=== PATIENT | male | born 1985 | race Caucasian/White ===

== ENCOUNTER 2017-05-27 05:30 | Emergency (ER) | payer MEDICAID ==
[~2017-05-27] VITALS: Ht 167.6 cm; Wt 80.0 kg
[~2017-05-27 05:30] MED LIST: AMOX1TAB64 PO; HYDR-882 PO; ONDA4TAB7 PO; OXYC-302 PO
[2017-05-27 06:28] VITALS: BP 102/54
== END 2017-05-27 08:37 | disposition home or self-care (01) ==
LOC: MERGE 05:30 → EDBD 05:30 → ED 08:10
DX: F10.120 Alcohol abuse with intoxication, uncomplicated (principal)
CPT/HCPCS: 36415; 80307; 99283

== ENCOUNTER 2017-07-06 03:59 | Emergency (ER) | payer MEDICAID ==
[~2017-07-06] VITALS: Ht 170.2 cm; Wt 60.6 kg
[2017-07-06 04:01] VITALS: BP 125/79
[2017-07-06] MEDS ORDERED: IBUPROFEN 200 MG TABLET ONE (04:46)
[2017-07-06] MEDS ORDERED: IBUPROFEN 200 MG TABLET PO ONE (05:00)
== END 2017-07-06 06:06 | disposition home or self-care (01) ==
LOC: ED 05:45
DX: S90.32XA Contusion of left foot, initial encounter (principal); Z59.0 Homelessness; F17.200 Nicotine dependence, unspecified, uncomplicated; X50.1XXA Overexertion from prolonged static or awkward postures, initial encounter; Y93.89 Activity, other specified; Y99.8 Other external cause status; Y92.89 Other specified places as the place of occurrence of the external cause
CPT/HCPCS: 99284

== ENCOUNTER 2018-07-13 17:12 | Emergency (ER) | payer MEDICAID ==
[~2018-07-13] VITALS: Ht 167.6 cm; Wt 58.3 kg
[~2018-07-13 17:12] MED LIST changes: +HYDR-3653 PO; -HYDR-882 PO
[2018-07-13] MEDS ORDERED: CHLORDIAZEPOXIDE 25 MG CAPSULE PO ONE (19:00)
[2018-07-13] MEDS ORDERED: CHLORDIAZEPOXIDE 25 MG CAPSULE ONE (19:08)
[2018-07-13 19:14] VITALS: BP 117/71
== END 2018-07-13 21:40 | disposition home or self-care (01) ==
LOC: ED 19:25
DX: F15.10 Other stimulant abuse, uncomplicated (principal)
CPT/HCPCS: 82962; 99283

== ENCOUNTER 2018-07-28 02:11 | Emergency (ER) | payer MEDICAID ==
[~2018-07-28] VITALS: Ht 170.2 cm; Wt 60.6 kg
[2018-07-28 02:13] VITALS: BP 143/87
== END 2018-07-28 03:33 | disposition home or self-care (01) ==
LOC: ED 02:34
DX: S62.326A Displaced fracture of shaft of fifth metacarpal bone, right hand, initial encounter for closed fracture (principal); W22.01XA Walked into wall, initial encounter; Y93.89 Activity, other specified; Y99.8 Other external cause status; Y92.89 Other specified places as the place of occurrence of the external cause
CPT/HCPCS: 29125; 99284

== ENCOUNTER 2018-07-28 09:00 | Emergency (ER) | payer MEDICAID ==
[~2018-07-28] VITALS: Ht 167.6 cm; Wt 60.0 kg
[2018-07-28 09:04] VITALS: BP 121/79
== END 2018-07-28 10:45 | disposition home or self-care (01) ==
LOC: ED 09:21
DX: S62.324A Displaced fracture of shaft of fourth metacarpal bone, right hand, initial encounter for closed fracture (principal); S62.306A Unspecified fracture of fifth metacarpal bone, right hand, initial encounter for closed fracture; F10.10 Alcohol abuse, uncomplicated; Z72.9 Problem related to lifestyle, unspecified; X58.XXXA Exposure to other specified factors, initial encounter; Y93.89 Activity, other specified; Y99.8 Other external cause status; Y92.89 Other specified places as the place of occurrence of the external cause
CPT/HCPCS: 29125; 99284

== ENCOUNTER 2018-07-28 16:02 | Emergency (ER) | payer MEDICAID ==
[~2018-07-28] VITALS: Ht 172.7 cm; Wt 60.3 kg
[2018-07-28 16:06] VITALS: BP 133/83
== END 2018-07-28 16:45 | disposition home or self-care (01) ==
LOC: ED 16:43
DX: S62.354A Nondisplaced fracture of shaft of fourth metacarpal bone, right hand, initial encounter for closed fracture (principal); S62.306A Unspecified fracture of fifth metacarpal bone, right hand, initial encounter for closed fracture; Z90.49 Acquired absence of other specified parts of digestive tract; W19.XXXA Unspecified fall, initial encounter; Y93.89 Activity, other specified; Y99.8 Other external cause status; Y92.009 Unspecified place in unspecified non-institutional (private) residence as the place of occurrence of the external cause
CPT/HCPCS: 99281; 99282

== ENCOUNTER 2018-09-10 20:02 | Emergency (ER) | payer MEDICAID ==
[~2018-09-10] VITALS: Ht 167.6 cm; Wt 57.7 kg
[2018-09-10 20:03] VITALS: BP 150/92
== END 2018-09-10 22:45 | disposition home or self-care (01) ==
LOC: ED 22:36
DX: S62.364A Nondisplaced fracture of neck of fourth metacarpal bone, right hand, initial encounter for closed fracture (principal); S62.366A Nondisplaced fracture of neck of fifth metacarpal bone, right hand, initial encounter for closed fracture; Z90.49 Acquired absence of other specified parts of digestive tract; Z72.9 Problem related to lifestyle, unspecified; X58.XXXA Exposure to other specified factors, initial encounter; Y93.89 Activity, other specified; Y92.098 Other place in other non-institutional residence as the place of occurrence of the external cause; Y99.8 Other external cause status
CPT/HCPCS: 29125; 36415; 86592; 87491; 87591; 87806; 99284; G0475

== ENCOUNTER 2018-09-21 15:36 | Emergency (ER) | payer MEDICAID ==
[~2018-09-21] VITALS: Ht 170.2 cm; Wt 56.0 kg
[2018-09-21 15:47] VITALS: BP 128/83
== END 2018-09-21 16:43 | disposition home or self-care (01) ==
LOC: ED 16:05
DX: M79.641 Pain in right hand (principal)
CPT/HCPCS: 29125

== ENCOUNTER 2018-09-24 23:02 | Emergency (ER) | payer MEDICAID ==
[~2018-09-24] VITALS: Ht 172.7 cm; Wt 56.0 kg
[2018-09-24 23:07] VITALS: BP 132/76
--- NOTE | 2018-09-24 23:10 | NUR ---
PT AMBULATED TO ROOM WITH A STEADY GAIT AND CHANGED INTO GOWN
[2018-09-24] MEDS ORDERED: ACETAMINOPHEN 500 MG TABLET ONE (23:56)
--- NOTE | 2018-09-24 23:59 | NUR ---
PT MEDICATED. VSS. PT GETTING DRESSED
[2018-09-25] MEDS ORDERED: ACETAMINOPHEN 500 MG TABLET PO ONE
--- NOTE | 2018-09-25 00:03 | NUR ---
PT EMPTIED BACKPACK. PT REFUSING TO GET DRESSED. SECURITY CALLED TO ASSIST WITH DISCHARGE.
--- NOTE | 2018-09-25 00:24 | NUR ---
PT ESCORTED OUT BY SECURITY
== END 2018-09-25 00:25 | disposition home or self-care (01) ==
LOC: ED 23:40
DX: G89.11 Acute pain due to trauma (principal); R10.2 Pelvic and perineal pain; Z90.49 Acquired absence of other specified parts of digestive tract; W01.0XXA Fall on same level from slipping, tripping and stumbling without subsequent striking against object, initial encounter; Y93.89 Activity, other specified; Y92.410 Unspecified street and highway as the place of occurrence of the external cause; Y99.8 Other external cause status
CPT/HCPCS: 99282

== ENCOUNTER 2018-10-09 00:14 | Emergency (ER) | payer MEDICAID ==
[~2018-10-09] VITALS: Ht 167.6 cm; Wt 54.0 kg
[2018-10-09 00:19] VITALS: BP 111/71
--- NOTE | 2018-10-09 01:40 | NUR ---
Patient/Caregiver given discharge instructions and they have confirmed that they understand the instructions. Patient ambulatory with steady gait.
== END 2018-10-09 01:41 | disposition home or self-care (01) ==
LOC: ED 00:54
DX: R07.89 Other chest pain (principal); F15.10 Other stimulant abuse, uncomplicated; R20.2 Paresthesia of skin; Z90.49 Acquired absence of other specified parts of digestive tract
CPT/HCPCS: 93005; 99283

== ENCOUNTER 2019-10-13 05:21 | Emergency (ER) | payer MEDICAID ==
[~2019-10-13] VITALS: Ht 170.2 cm; Wt 59.0 kg
[~2019-10-13 05:21] MED LIST changes: +QUET25TA5 PO; +RISP1TAB45 PO
--- NOTE | 2019-10-13 05:58 | NUR ---
URINE SAMPLE SENT
[2019-10-13] MEDS ORDERED: ONDANSETRON 2MG/ML, 2ML IVPush ONE (06:00)
[2019-10-13] MEDS ORDERED: SODIUM CHLORIDE FLUSH 10ML SYR IVF ONE (06:00)
[2019-10-13] MEDS ORDERED: KETOROLAC 30 MG/1 ML IVPush ONE (06:00)
[2019-10-13] MEDS ORDERED: KETOROLAC 30 MG/1 ML ONE (06:03)
[2019-10-13] MEDS ORDERED: ONDANSETRON 2MG/ML, 2ML ONE (06:03)
--- NOTE | 2019-10-13 06:09 | NUR ---
Medicated per MAR.
[2019-10-13 06:15] LABS: BASOPHILS # (AUTO) 0.11 x10^3/uL (0-0.1); BASOPHILS % (AUTO) 1 % (0-1); EOSINOPHILS # (AUTO) 0.24 x10^3/uL (0-0.4); EOSINOPHILS % (AUTO) 2 % (1-7); LYMPHOCYTES # (AUTO) 1.98 x10^3/uL (1-3.4); LYMPHOCYTES % (AUTO) 20 % (22-44); MD NO; MEAN CORPUSCULAR HEMOGLOBIN 31.5 pg (27.5-34.5); MEAN CORPUSCULAR HGB CONC 34.3 g/dL (33.2-36.2); MEAN CORPUSCULAR VOLUME 91.8 fL (81-97); MEAN PLATELET VOLUME 7.1 fL (7.4-10.4); MONOCYTES # (AUTO) 0.61 x10^3/uL (0.2-0.8); MONOCYTES % (AUTO) 6 % (2-9); NEUTROPHILS # (AUTO) 6.86 x10^3/uL (1.8-6.8); NEUTROPHILS % (AUTO) 70 % (42-75); PLATELET COUNT 368 x10^3/uL (130-400); RED BLOOD COUNT 5.13 x10^6/uL (4.38-5.82); RED CELL DISTRIBUTION WIDTH 13.5 % (9.4-14.8)
[2019-10-13 06:15] LABS: MICROSCOPIC NOT IND
[2019-10-13 06:20] LABS: CULTURE INDICATED? NO
[2019-10-13 06:23] LABS: ANION GAP 11 mmol/L (5-15); CALCIUM 8.7 mg/dL (8.5-10.1); CHLORIDE 108 mmol/L (98-107); CREATININE 0.91 mg/dL (0.7-1.3)
--- NOTE | 2019-10-13 06:56 | NUR ---
REPORT GIVEN TO KATHARINE TATE
--- NOTE | 2019-10-13 06:57 | NUR ---
Assumed c/o pt from KATHARINE Zavala. Pt OOB to restroom w/out assist.
[2019-10-13 07:27] VITALS: BP 117/69
--- NOTE | 2019-10-13 07:55 | NUR ---
Patient given discharge instructions and they have confirmed that they understand the instructions. Patient ambulatory with steady gait.
== END 2019-10-13 07:57 | disposition home or self-care (01) ==
LOC: ED 05:52
DX: R10.31 Right lower quadrant pain (principal); F17.210 Nicotine dependence, cigarettes, uncomplicated; Z90.49 Acquired absence of other specified parts of digestive tract
CPT/HCPCS: 36415; 80048; 81003; 82040; 85025; 96374; 96375; 99283; J1885; J2405

== ENCOUNTER 2019-10-21 15:46 | Emergency (ER) | payer MEDICAID ==
[~2019-10-21] VITALS: Ht 170.2 cm; Wt 61.0 kg
[2019-10-21] MEDS ORDERED: NALOXONE 0.4 MG/ML, 1ML ONE (16:42)
--- NOTE | 2019-10-21 16:48 | NUR ---
PIV ESTABLISHED. PT TOLERATED WITH NO COMPLICATIONS.
[2019-10-21] MEDS ORDERED: SODIUM CHLORIDE 0.9% 1,000ML IVBOLUS ONE ×2 (17:00→19:00)
[2019-10-21] MEDS ORDERED: NALOXONE 0.4 MG/ML, 1ML IVPush PRN (17:00)
--- NOTE | 2019-10-21 17:05 | NUR ---
LATE ENTRY FOR 1620 PT ARRIVED TO ED WITH C/O PAIN. PT UNABLE TO KEEP EYES OPEN AND HOLD CONVERSATION. PT UNABLE TO EXPRESS WHAT IS BOTHERING HIM. PT WAKENS TO VERBAL STIMULI BUT CANT KEEP EYES OPEN. PT FOLLOWS COMMANDS. PT PLACED ON CONT PULSE OX,NIBP, ONLINE BANKING SPECIALIST.
--- NOTE | 2019-10-21 17:07 | NUR ---
MEDICATION ADMINISTERED PER ORDER. NO CHANGE
[2019-10-21 17:15] LABS: BASOPHILS # (AUTO) 0.09 x10^3/uL (0-0.1); BASOPHILS % (AUTO) 1 % (0-1); EOSINOPHILS # (AUTO) 0.43 x10^3/uL (0-0.4); EOSINOPHILS % (AUTO) 6 % (1-7); LYMPHOCYTES # (AUTO) 2.06 x10^3/uL (1-3.4); LYMPHOCYTES % (AUTO) 27 % (22-44); MD NO; MEAN CORPUSCULAR HEMOGLOBIN 31.5 pg (27.5-34.5); MEAN CORPUSCULAR HGB CONC 34.3 g/dL (33.2-36.2); MEAN CORPUSCULAR VOLUME 91.8 fL (81-97); MEAN PLATELET VOLUME 7.4 fL (7.4-10.4); MONOCYTES # (AUTO) 0.37 x10^3/uL (0.2-0.8); MONOCYTES % (AUTO) 5 % (2-9); NEUTROPHILS % (AUTO) 62 % (42-75); PLATELET COUNT 295 x10^3/uL (130-400); RED BLOOD COUNT 4.99 x10^6/uL (4.38-5.82); RED CELL DISTRIBUTION WIDTH 14.1 % (9.4-14.8)
--- NOTE | 2019-10-21 17:17 | NUR ---
PT WAKING UP MORE. PT STATES HE TOOK SOME QUETIAPINE ABOUT 3 HOURS AGO D/T FEELING "ANXIOUS" PT DENIED SI/HI. PT WAS AMBULATORY WITH STEADY GAIT TO BATHROOM.
[2019-10-21 17:20] LABS: ALBUMIN 3.7 g/dL (3.4-5.0); ANION GAP 12 mmol/L (5-15); CALCIUM 8.9 mg/dL (8.5-10.1); CHLORIDE 109 mmol/L (98-107)
[2019-10-21 17:21] LABS: SALICYLATE LEVEL < 1.7 mg/dL (2.8-20.0)
[2019-10-21 17:22] LABS: ALANINE AMINOTRANSFERASE 27 U/L (12-78); ALKALINE PHOSPHATASE 74 U/L (45-117); BILIRUBIN,TOTAL 0.5 mg/dL (0.2-1.0); CREATININE 0.88 mg/dL (0.7-1.3)
[2019-10-21 17:58] LABS: AMPHETAMINE SCREEN, URINE Negative (Negative); BARBITURATE SCREEN, URINE Negative (Negative); BENZODIAZEPINE SCREEN, URINE Negative (Negative); CANNABINOID SCREEN, URINE Positive (Negative); COCAINE SCREEN, URINE Negative (Negative); METHADONE SCREEN, URINE Negative (Negative); OPIATE SCREEN, URINE Negative (Negative)
--- NOTE | 2019-10-21 18:03 | NUR ---
DIET TRAY DELIVERED.
--- NOTE | 2019-10-21 18:30 | NUR ---
PT RESTING ON GURNEY. NADN. RESPS EQUAL AND UNLABORED. PT RESPONDS TO VERBAL COMMAND. WILL CONTINUE TO MONITOR
--- NOTE | 2019-10-21 18:52 | NUR ---
BEDSIDE REPORT TO KATHARINE WEEKS.
--- NOTE | 2019-10-21 18:53 | NUR ---
RPT RECEIVED FROM KATHARINE MARQUEZ. ASSUMED CARE OF PT. PT RESTING COMFORTABLY. BLANKET PROVIDED. MONITOR IN PLACE.
[2019-10-21 21:01] VITALS: BP 102/51
== END 2019-10-21 21:06 | disposition home or self-care (01) ==
LOC: ED 17:25
DX: T43.591A Poisoning by other antipsychotics and neuroleptics, accidental (unintentional), initial encounter (principal); R41.82 Altered mental status, unspecified; F17.200 Nicotine dependence, unspecified, uncomplicated; Z90.49 Acquired absence of other specified parts of digestive tract; Y92.9 Unspecified place or not applicable
CPT/HCPCS: 36415; 80053; 80307; 85025; 93005; 96361; 96374; 99284; J2310; J7030

== ENCOUNTER 2019-10-31 06:07 | Emergency (ER) | payer MEDICAID ==
[~2019-10-31] VITALS: Ht 170.2 cm; Wt 61.0 kg
--- NOTE | 2019-10-31 06:24 | NUR ---
Pt presents to room with c/o left hand/wrist pain stating he woke up with the pain today. Pt cannot recall falling or injuring the hand at any point. Pt was seen here yesterday and registered under a different name. Pt admitted to cocaine and marijuana use yesterday. Pt admits to heroin use today. Pt has redness and swelling to his left hand here.
--- NOTE | 2019-10-31 06:53 | NUR ---
report received from melissa treviño.
[2019-10-31] MEDS ORDERED: DIPH,PERTUSS(ACELL),TET VAC/PF 0.5 ML IM-VACC ONE ×2 (07:00→07:10)
[2019-10-31] MEDS ORDERED: ACETAMINOPHEN 325 MG TABLET PO ONE (07:00)
[2019-10-31] MEDS ORDERED: ACETAMINOPHEN 325 MG TABLET ONE (07:10)
--- NOTE | 2019-10-31 07:24 | NUR ---
PT MEDICATED PER EMAR. PT TOLERATED WELL.
[2019-10-31 07:37] VITALS: BP 111/67
--- NOTE | 2019-10-31 08:02 | NUR ---
Patient given discharge instructions and they have confirmed that they understand the instructions.
== END 2019-10-31 08:03 | disposition home or self-care (01) ==
LOC: ED 06:38
DX: M25.532 Pain in left wrist (principal); Z90.89 Acquired absence of other organs; Z90.49 Acquired absence of other specified parts of digestive tract; F17.200 Nicotine dependence, unspecified, uncomplicated; W18.30XA Fall on same level, unspecified, initial encounter; Y93.89 Activity, other specified; Y92.009 Unspecified place in unspecified non-institutional (private) residence as the place of occurrence of the external cause; Y99.8 Other external cause status
CPT/HCPCS: 90471; 90715; 99283

== ENCOUNTER 2019-11-01 03:20 | Emergency (ER) | payer MEDICAID ==
[~2019-11-01] VITALS: Ht 167.6 cm; Wt 57.7 kg
[2019-11-01 03:23] VITALS: BP 155/68
--- NOTE | 2019-11-01 03:38 | NUR ---
pt became aggressive towards staff immediately upon entering room. Pt yelling that he hasn't done meth in a week and started screaming in PA's face. Pt unwilling to speak to staff in a calm manner, pt yelling that he needs muscle relaxers. Explained treatment plan to pt, pt states that it isn't "good enough." Pt gathered belongings and left screaming.
== END 2019-11-01 03:47 | disposition left against medical advice (07) ==
LOC: ED 03:41
DX: F15.20 Other stimulant dependence, uncomplicated (principal); F17.200 Nicotine dependence, unspecified, uncomplicated
CPT/HCPCS: 99281

== ENCOUNTER 2019-11-01 23:56 | Emergency (ER) | payer MEDICAID ==
[~2019-11-01] VITALS: Ht 167.6 cm; Wt 59.8 kg
[2019-11-02 00:01] VITALS: BP 146/90
== END 2019-11-02 00:33 | disposition home or self-care (01) ==
LOC: ED 11-02 00:20
DX: F15.10 Other stimulant abuse, uncomplicated (principal); F17.200 Nicotine dependence, unspecified, uncomplicated; Z90.49 Acquired absence of other specified parts of digestive tract
CPT/HCPCS: 99281

== ENCOUNTER 2019-11-13 08:46 | Emergency (ER) | payer MEDICAID ==
[~2019-11-13] VITALS: Ht 165.1 cm; Wt 69.4 kg
--- NOTE | 2019-11-13 08:55 | NUR ---
ABEL RN: PT CHECKED IN A DIFFERENT IDENITY, REGISTRATION IS ATTEMPTING TO MERGE ACCOUNTS
--- NOTE | 2019-11-13 09:01 | NUR ---
PT HERE WITH C/O LEFT KNEE PAIN S/P SLIPPING ON ICE LAST NIGHT AND A DEHISED ABDOMINAL SURGICAL WOUND. PT STATES SEEN AT [facility] AND HAD X-LAP BY GIANNA ON 11/04 BUT LEFT AMA ON 11/09. PT AAO X 4, NAD, ROOM AIR, DRESSED IN GOWN AND ON MONITOR. PA AT BEDSIDE FOR EXAM. NO SWELLING NOTED TO LEFT KNEE. APPROX. 2 INCH SURGICAL WOUND DEHISENCE NOTED, NO BLEEDING OR DRAINAGE. SIDERAIL X [address], CALL LIGHT WITHIN REACH.
[2019-11-13 09:10] VITALS: BP 120/74
[2019-11-13] MEDS ORDERED: LIDOCAINE-MPF 1%, 5ML INFIL ONE (09:30)
[2019-11-13] MEDS ORDERED: LIDOCAINE-MPF 1%, 5ML ONE (10:14)
--- NOTE | 2019-11-13 10:51 | NUR ---
JERRY THOMPSON AT BEDSIDE FOR BEST. BEST X [address] Patient/Caregiver given discharge instructions and they have confirmed that they understand the instructions. Patient ambulatory with steady gait.
== END 2019-11-13 11:06 | disposition home or self-care (01) ==
LOC: ED 09:48
DX: S83.91XA Sprain of unspecified site of right knee, initial encounter (principal); T81.30XA Disruption of wound, unspecified, initial encounter; Z90.49 Acquired absence of other specified parts of digestive tract; X50.1XXA Overexertion from prolonged static or awkward postures, initial encounter; Y93.89 Activity, other specified; Y92.89 Other specified places as the place of occurrence of the external cause; Y99.8 Other external cause status
CPT/HCPCS: 12002; 99283

== ENCOUNTER 2019-11-14 18:54 | Emergency (ER) | payer MEDICAID ==
[~2019-11-14] VITALS: Ht 170.2 cm; Wt 67.8 kg
[2019-11-14 19:22] VITALS: BP 131/63
--- NOTE | 2019-11-14 20:05 | NUR ---
SECURITY ESCORTED PT OUT DUE TO SPITTING ON PEOPLE IN LOBBY
== END 2019-11-14 20:07 | disposition left against medical advice (07) ==
LOC: ED 20:00
DX: M25.561 Pain in right knee (principal); F19.10 Other psychoactive substance abuse, uncomplicated; Z53.21 Procedure and treatment not carried out due to patient leaving prior to being seen by health care provider
CPT/HCPCS: 99281

== ENCOUNTER 2019-11-16 09:54 | Emergency (ER) | payer MEDICAID ==
[~2019-11-16] VITALS: Ht 167.6 cm; Wt 86.4 kg
[2019-11-16 10:02] VITALS: BP 116/65
--- NOTE | 2019-11-16 10:12 | NUR ---
VACUUM TANK TENDER: PT TO ROOM VIA WHEELCHAIR FROM [facility]
[2019-11-16] MEDS ORDERED: LORazepam 1MG TABLET PO ONE (11:00)
--- NOTE | 2019-11-16 11:13 | NUR ---
REPORT RECIEVED FROM GOMEZ
[2019-11-16 11:33] LABS: AMPHETAMINE SCREEN, URINE Positive (Negative); BARBITURATE SCREEN, URINE Negative (Negative); BENZODIAZEPINE SCREEN, URINE Negative (Negative); CANNABINOID SCREEN, URINE Positive (Negative); COCAINE SCREEN, URINE Negative (Negative); METHADONE SCREEN, URINE Negative (Negative); OPIATE SCREEN, URINE Negative (Negative)
[2019-11-16 11:40] LABS: BASOPHILS # (AUTO) 0.13 x10^3/uL (0-0.1); BASOPHILS % (AUTO) 1 % (0-1); EOSINOPHILS # (AUTO) 0.48 x10^3/uL (0-0.4); EOSINOPHILS % (AUTO) 5 % (1-7); LYMPHOCYTES # (AUTO) 2.33 x10^3/uL (1-3.4); LYMPHOCYTES % (AUTO) 22 % (22-44); MD NO; MEAN CORPUSCULAR HGB CONC 34.5 g/dL (33.2-36.2); MEAN CORPUSCULAR VOLUME 89.9 fL (81-97); MONOCYTES % (AUTO) 6 % (2-9); NEUTROPHILS # (AUTO) 7.13 x10^3/uL (1.8-6.8); NEUTROPHILS % (AUTO) 67 % (42-75); PLATELET COUNT 627 x10^3/uL (130-400); RED BLOOD COUNT 4.32 x10^6/uL (4.38-5.82); RED CELL DISTRIBUTION WIDTH 13.2 % (9.4-14.8)
--- NOTE | 2019-11-16 11:45 | NUR ---
PT IN ROOM, RESTING. HERE FOR INCSION CHECK. INCISIONS CDI
[2019-11-16 11:52] LABS: ALBUMIN 3.4 g/dL (3.4-5.0); ANION GAP 4 mmol/L (5-15); CALCIUM 8.6 mg/dL (8.5-10.1); CHLORIDE 107 mmol/L (98-107); CREATININE 0.83 mg/dL (0.7-1.3)
[2019-11-16 11:54] LABS: SALICYLATE LEVEL < 1.7 mg/dL (2.8-20.0)
--- NOTE | 2019-11-16 12:15 | NUR ---
Patient/Caregiver given discharge instructions and they have confirmed that they understand the instructions. Patient ambulatory with steady gait.
== END 2019-11-16 12:18 | disposition home or self-care (01) ==
LOC: ED 10:54
DX: S31.130A Puncture wound of abdominal wall without foreign body, right upper quadrant without penetration into peritoneal cavity, initial encounter (principal); F15.10 Other stimulant abuse, uncomplicated; M25.561 Pain in right knee; X58.XXXA Exposure to other specified factors, initial encounter; Y93.89 Activity, other specified; Y92.89 Other specified places as the place of occurrence of the external cause; Y99.8 Other external cause status
CPT/HCPCS: 36415; 80048; 80307; 82040; 85025; 99283

== ENCOUNTER 2019-11-19 09:51 | Emergency (ER) | payer MEDICAID ==
[~2019-11-19] VITALS: Ht 167.6 cm; Wt 56.1 kg
--- NOTE | 2019-11-19 09:55 | NUR ---
NA X1
[2019-11-19 10:09] VITALS: BP 125/73
--- NOTE | 2019-11-19 10:39 | NUR ---
pt seen and examined by kim vallejo, per kim, it is not time for sutures to be removed yet. pt instructed to follow up with surgeon. pt a&o, resps even and unlabored, amb to dc with steady gait. pt given dc instructions and script, educated regarding dc rx for keflex and zofran.
== END 2019-11-19 10:40 | disposition home or self-care (01) ==
LOC: ED 10:30
DX: T81.30XD Disruption of wound, unspecified, subsequent encounter (principal)
CPT/HCPCS: 99283

== ENCOUNTER 2019-11-30 02:10 | Emergency (ER) | payer MEDICAID ==
[~2019-11-30] VITALS: Ht 167.6 cm; Wt 55.7 kg
[2019-11-30 02:11] VITALS: BP 114/74
== END 2019-11-30 03:20 | disposition home or self-care (01) ==
LOC: ED 03:00
DX: F12.10 Cannabis abuse, uncomplicated (principal); F17.200 Nicotine dependence, unspecified, uncomplicated; Z48.00 Encounter for change or removal of nonsurgical wound dressing; Z72.9 Problem related to lifestyle, unspecified
CPT/HCPCS: 99281

== ENCOUNTER 2019-12-02 22:59 | Emergency (ER) | payer MEDICAID ==
[~2019-12-02] VITALS: Ht 170.2 cm; Wt 60.0 kg
[2019-12-02 23:14] VITALS: BP 98/67
== END 2019-12-02 23:17 | disposition left against medical advice (07) ==
LOC: ED 23:10
DX: R07.89 Other chest pain (principal); R10.9 Unspecified abdominal pain; Z53.21 Procedure and treatment not carried out due to patient leaving prior to being seen by health care provider
CPT/HCPCS: 93005

== ENCOUNTER 2020-01-08 09:12 | Emergency (ER) | payer MEDICAID ==
[~2020-01-08] VITALS: Ht 167.6 cm; Wt 56.7 kg
[2020-01-08 09:13] VITALS: BP 123/63
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
[2020-01-08] MEDS ORDERED: ACETAMINOPHEN 325 MG TABLET PO ONE (09:30)
[2020-01-08] MEDS ORDERED: NEOSPORIN OINT. PKT 1 PACKET ONE (09:31)
[2020-01-08] MEDS ORDERED: ACETAMINOPHEN 325 MG TABLET ONE (09:34)
== END 2020-01-08 10:03 | disposition home or self-care (01) ==
LOC: ED 09:50
DX: T23.172A Burn of first degree of left wrist, initial encounter (principal); F17.290 Nicotine dependence, other tobacco product, uncomplicated; Z91.19 Patient's noncompliance with other medical treatment and regimen; Z98.890 Other specified postprocedural states; X11.8XXA Contact with other hot tap-water, initial encounter; Y93.89 Activity, other specified; Y92.89 Other specified places as the place of occurrence of the external cause; Y99.8 Other external cause status
CPT/HCPCS: 99283

== ENCOUNTER 2020-01-18 18:34 | Emergency (ER) | payer MEDICAID ==
[~2020-01-18] VITALS: Ht 167.6 cm; Wt 55.4 kg
[2020-01-18 18:36] VITALS: BP 116/80
--- NOTE | 2020-01-18 19:19 | NUR ---
PT NOT IN ROOM. PT WAS VISUALIZED WALKING BACK TO ROOM FROM BATHROOM ABOUT 15 MINUTES AGO AND HAS NOT BEEN SEEN SINCE. PT ASSUMED TO HAVE ELOPED.
== END 2020-01-18 19:39 | disposition left against medical advice (07) ==
LOC: ED 19:30
DX: S60.921A Unspecified superficial injury of right hand, initial encounter (principal); Z53.21 Procedure and treatment not carried out due to patient leaving prior to being seen by health care provider; W26.8XXA Contact with other sharp object(s), not elsewhere classified, initial encounter; Y93.89 Activity, other specified; Y92.89 Other specified places as the place of occurrence of the external cause; Y99.8 Other external cause status

== ENCOUNTER 2020-03-14 07:01 | Emergency (ER) | payer MEDICAID ==
[~2020-03-14] VITALS: Ht 167.6 cm; Wt 56.6 kg
[2020-03-14] MEDS ORDERED: FAMOTIDINE 20 MG/2 ML IVPush ONE (07:30)
[2020-03-14] MEDS ORDERED: ONDANSETRON 2MG/ML, 2ML IVPush ONE (07:30)
[2020-03-14] MEDS ORDERED: MORPHINE SULFATE 4 MG/ML, 1ML IVPush PRN (07:30)
[2020-03-14] MEDS ORDERED: SODIUM CHLORIDE FLUSH 10ML SYR IVF ONE (07:30)
--- NOTE | 2020-03-14 07:37 | NUR ---
DULL ABDOMINAL PAIN COMES AND GOES FOR A COUPLE DAYS.
[2020-03-14] MEDS ORDERED: FAMOTIDINE 20 MG/2 ML ONE (07:51)
[2020-03-14] MEDS ORDERED: ONDANSETRON 2MG/ML, 2ML ONE (07:51)
[2020-03-14] MEDS ORDERED: MORPHINE SULFATE 4 MG/ML, 1ML ONE (07:51)
[2020-03-14 08:04] LABS: MEAN CORPUSCULAR HEMOGLOBIN 30.4 pg (27.5-34.5); MEAN CORPUSCULAR HGB CONC 33.9 g/dL (33.2-36.2); MEAN CORPUSCULAR VOLUME 89.8 fL (81-97); MEAN PLATELET VOLUME 7.3 fL (7.4-10.4); PLATELET COUNT 322 x10^3/uL (130-400); RED BLOOD COUNT 5.44 x10^6/uL (4.38-5.82)
--- NOTE | 2020-03-14 08:08 | NUR ---
IV ESTABLISHED AND MEDICATED NOTED ON NOV. AWAITING CT
[2020-03-14 08:16] LABS: ALANINE AMINOTRANSFERASE 32 U/L (12-78); ALBUMIN 4.3 g/dL (3.4-5.0); ANION GAP 6 mmol/L (5-15); CALCIUM 9.1 mg/dL (8.5-10.1); CHLORIDE 106 mmol/L (98-107); CREATININE 1.11 mg/dL (0.7-1.3)
[2020-03-14 08:18] LABS: ALKALINE PHOSPHATASE 94 U/L (45-117); TOTAL PROTEIN 8.2 g/dL (6.4-8.2)
[2020-03-14 08:32] VITALS: BP 167/95
[2020-03-14 08:38] LABS: MICROSCOPIC NOT IND
[2020-03-14 08:58] LABS: BASOPHILS # (AUTO) 0.07 x10^3/uL (0-0.1); BASOPHILS % (AUTO) 0 % (0-1); EOSINOPHILS # (AUTO) 0.02 x10^3/uL (0-0.4); EOSINOPHILS % (AUTO) 0 % (1-7); LYMPHOCYTES # (AUTO) 2.52 x10^3/uL (1-3.4); LYMPHOCYTES % (AUTO) 14 % (22-44); MD SCAN; MONOCYTES # (AUTO) 1.15 x10^3/uL (0.2-0.8); MONOCYTES % (AUTO) 7 % (2-9); NEUTROPHILS % (AUTO) 78 % (42-75)
--- NOTE | 2020-03-14 09:24 | NUR ---
LATE ENTRY: REPORT FROM PEGGY AT 0900, ASSUME CARE OF PT AT THAT TIME. ALL RESULTS BACK,PT FOR RECHECK.
[2020-03-14] MEDS ORDERED: OMNIPAQUE 350 MG/ML, 100ML BOTTLE ONE (09:52)
== END 2020-03-14 09:37 | disposition home or self-care (01) ==
LOC: ED 07:22
DX: R10.13 Epigastric pain (principal); Z91.19 Patient's noncompliance with other medical treatment and regimen
CPT/HCPCS: 36415; 74177; 80053; 81003; 83690; 85025; 96374; 96375; 99285; J2270; J2405; J3490; Q9967

== ENCOUNTER 2020-03-15 01:20 | Emergency (ER) | payer MEDICAID ==
[~2020-03-15] VITALS: Ht 167.6 cm; Wt 55.3 kg
[2020-03-15 01:23] VITALS: BP 118/53
== END 2020-03-15 04:49 | disposition home or self-care (01) ==
LOC: ED 02:00
DX: R44.0 Auditory hallucinations (principal); F41.1 Generalized anxiety disorder; F17.210 Nicotine dependence, cigarettes, uncomplicated; Z90.89 Acquired absence of other organs; Z90.49 Acquired absence of other specified parts of digestive tract
CPT/HCPCS: 99284; 99406

== ENCOUNTER 2020-03-16 08:03 | Emergency (ER) | payer MEDICAID ==
[~2020-03-16] VITALS: Ht 170.2 cm; Wt 55.0 kg
[2020-03-16 08:07] VITALS: BP 111/82
== END 2020-03-16 09:15 | disposition home or self-care (01) ==
LOC: ED 08:24
DX: Z00.00 Encounter for general adult medical examination without abnormal findings (principal); F17.200 Nicotine dependence, unspecified, uncomplicated
CPT/HCPCS: 99281

== ENCOUNTER 2020-03-16 16:23 | Emergency (ER) | payer MEDICAID ==
[~2020-03-16] VITALS: Ht 167.6 cm; Wt 57.3 kg
[2020-03-16 16:26] VITALS: BP 122/78
--- NOTE | 2020-03-16 16:33 | NUR ---
COLLECTION CORRESPONDENT: PT TO ROOM VIA WHEELCHAIR AT THIS TIME. RANJAN
--- NOTE | 2020-03-16 17:53 | NUR ---
SECURITY CALLED TO ESCORT PATIENT OUT, PATIENT BEING VERBALLY ABUSIVE AND UNCOOPERATIVE
== END 2020-03-16 18:05 | disposition home or self-care (01) ==
LOC: ED 18:00
DX: Z72.9 Problem related to lifestyle, unspecified (principal); F17.200 Nicotine dependence, unspecified, uncomplicated; Z90.49 Acquired absence of other specified parts of digestive tract
CPT/HCPCS: 99281

== ENCOUNTER 2020-03-16 21:30 | Emergency (ER) | payer MEDICAID | END 2020-03-16 21:34 | LOC: ED 21:31 | DX: R05 Cough (principal); R06.02 Shortness of breath; Z53.21 Procedure and treatment not carried out due to patient leaving prior to being seen by health care provider ==

== ENCOUNTER 2020-03-18 05:52 | Emergency (ER) | payer MEDICAID ==
[~2020-03-18] VITALS: Ht 170.2 cm; Wt 56.3 kg
[2020-03-18 05:56] VITALS: BP 145/79
== END 2020-03-18 06:24 | disposition home or self-care (01) ==
LOC: ED 06:18
DX: S50.862A Insect bite (nonvenomous) of left forearm, initial encounter (principal); Z90.49 Acquired absence of other specified parts of digestive tract; W57.XXXA Bitten or stung by nonvenomous insect and other nonvenomous arthropods, initial encounter; Y93.89 Activity, other specified; Y92.89 Other specified places as the place of occurrence of the external cause; Y99.8 Other external cause status
CPT/HCPCS: 99282

== ENCOUNTER 2020-03-18 18:15 | Emergency (ER) | payer MEDICAID ==
[~2020-03-18] VITALS: Ht 170.2 cm; Wt 65.0 kg
[2020-03-18] MEDS ORDERED: L.E.T SOLUTION TP ONE ×2 (18:27→19:00)
[2020-03-18 18:37] VITALS: BP 135/88
--- NOTE | 2020-03-18 18:39 | NUR ---
PT BIB EMS FOR LAC TO EYEBROW. PT USED METH. BAHAVIOR ERATTIC. PT NOT COOPERATIVE.
[2020-03-18] MEDS ORDERED: PLEASE ENTER HEIGHT AND WEIGHT MC SCH (19:00)
--- NOTE | 2020-03-18 19:00 | NUR ---
REPORT FROM PAO ALCANTAR
--- NOTE | 2020-03-18 19:09 | NUR ---
PT SITING IN STRETCHER YELLING OUT AND THROWING PERSONAL OBJECTS ON FLOOR OF ROOM. PT PICKING AT SKIN AND SPASTIC. WILL CONTINUE TO MONITOR
--- NOTE | 2020-03-18 19:19 | NUR ---
PT FOUND WALKING IN [place] STATING HE NEEDS TO CALL HIS DAD. PT ATTEMPTED TO CALL DAD ON HALLWAY PHONE THEN ESCORTED BACK TO ROOM BY THIS NURSE. PT IN BED NOW, YELLING OUT. SAFETY ENSURED, SITTING OBSERVING FROM HALLWAY, CALLBELL WITHIN REACH
--- NOTE | 2020-03-18 20:00 | NUR ---
PT FAMILY MEMBER AT BEDSIDE, DC INSTRUCTIONS GIVEN TO PT, FAMILY MEMBER UPSET ABOUT DC AND INFORMED OTHER RN AT NURSES STATION, MADE AWARE AND COMING TO SPEAK TO PT.
--- NOTE | 2020-03-18 20:01 | NUR ---
PT REFUSING TO SIT AND RECHECK VITAL SIGNS AT THIS TIME
--- NOTE | 2020-03-18 20:14 | NUR ---
DR PORTER AT BEDSIDE TO TALK TO PT AND FAMILY MEMBER, REQUESTING STERI STRIP APPLICATION. PT AND FAMILY MEMBER WALKED OFF UNIT BEFORE ABLE TO APPLY. PT AND FAMILY MEMBER ARE NO LONGER IN DEPARTMENT.
== END 2020-03-18 20:18 | disposition home or self-care (01) ==
LOC: ED 19:33
DX: S01.112A Laceration without foreign body of left eyelid and periocular area, initial encounter (principal); S09.90XA Unspecified injury of head, initial encounter; F15.159 Other stimulant abuse with stimulant-induced psychotic disorder, unspecified; Y04.0XXA Assault by unarmed brawl or fight, initial encounter; Y93.89 Activity, other specified; Y92.410 Unspecified street and highway as the place of occurrence of the external cause; Y99.8 Other external cause status
CPT/HCPCS: 99283

== ENCOUNTER 2020-05-25 08:53 | Emergency (ER) | payer MEDICAID ==
[~2020-05-25] VITALS: Ht 167.6 cm; Wt 63.2 kg
[2020-05-25 09:02] VITALS: BP 147/81
[2020-05-25] MEDS ORDERED: SODIUM CHLORIDE FLUSH 10ML SYR IVF ONE (10:30)
--- NOTE | 2020-05-25 11:05 | NUR ---
NO ANSWER IN LOBBY AT THIS TIME.
--- NOTE | 2020-05-25 11:15 | NUR ---
NO ANSWER IN LOBBY AT THIS TIME.
--- NOTE | 2020-05-25 11:28 | NUR ---
NO ANSWER IN LOBBY AT THIS TIME.
== END 2020-05-25 11:30 | disposition left against medical advice (07) ==
LOC: ED 09:00
DX: R10.9 Unspecified abdominal pain (principal)
CPT/HCPCS: 99281

== ENCOUNTER 2020-05-25 14:07 | Emergency (ER) | payer MEDICAID ==
[~2020-05-25] VITALS: Ht 167.6 cm; Wt 63.0 kg
[2020-05-25 14:14] VITALS: BP 145/90
[2020-05-25 14:45] LABS: BASOPHILS # (AUTO) 0.03 x10^3/uL (0-0.1); BASOPHILS % (AUTO) 0 % (0-1); EOSINOPHILS % (AUTO) 0 % (1-7); LYMPHOCYTES # (AUTO) 1.33 x10^3/uL (1-3.4); LYMPHOCYTES % (AUTO) 12 % (22-44); MD NO; MEAN CORPUSCULAR HGB CONC 33.4 g/dL (33.2-36.2); MEAN CORPUSCULAR VOLUME 89.9 fL (81-97); MEAN PLATELET VOLUME 7.2 fL (7.4-10.4); MONOCYTES # (AUTO) 0.48 x10^3/uL (0.2-0.8); MONOCYTES % (AUTO) 4 % (2-9); NEUTROPHILS # (AUTO) 9.25 x10^3/uL (1.8-6.8); NEUTROPHILS % (AUTO) 83 % (42-75); PLATELET COUNT 330 x10^3/uL (130-400); RED BLOOD COUNT 5.25 x10^6/uL (4.38-5.82); RED CELL DISTRIBUTION WIDTH 13.7 % (9.4-14.8)
[2020-05-25 14:50] LABS: ALANINE AMINOTRANSFERASE 24 U/L (12-78); ALBUMIN 4.9 g/dL (3.4-5.0); ANION GAP 8 mmol/L (5-15); CALCIUM 9.5 mg/dL (8.5-10.1); CHLORIDE 105 mmol/L (98-107); CREATININE 1.13 mg/dL (0.7-1.3)
[2020-05-25 14:52] LABS: ALKALINE PHOSPHATASE 88 U/L (45-117); BILIRUBIN,TOTAL 2.3 mg/dL (0.2-1.0); TOTAL PROTEIN 8.6 g/dL (6.4-8.2)
--- NOTE | 2020-05-25 15:16 | NUR ---
TO ROOM FROM LOBBY AT THIS TIME.
--- NOTE | 2020-05-25 15:26 | NUR ---
PT AMBULATED TO RESTROOM WITH STEADY GAIT TO PROVIDE URINE SAMPLE. UA COLLECTED AND SENT TO LAB.
[2020-05-25 15:37] LABS: MICROSCOPIC NOT IND
== END 2020-05-25 16:18 | disposition home or self-care (01) ==
LOC: ED 15:42
DX: K29.00 Acute gastritis without bleeding (principal); R10.84 Generalized abdominal pain; F17.200 Nicotine dependence, unspecified, uncomplicated
CPT/HCPCS: 36415; 80053; 81003; 83690; 85025; 99283

== ENCOUNTER 2020-05-29 06:17 | Emergency (ER) | payer MEDICAID ==
--- NOTE | 2020-05-29 06:25 | NUR ---
PT CALLED FOR TRIAGE, NO ANSWER. NOT IN LOBBY
--- NOTE | 2020-05-29 06:37 | NUR ---
PT CALLED FOR TRIAGE A TOTAL OF 3 TIMES, NO ANSWER. REGISTRATION STAFF STATED PT LEFT.
== END 2020-05-29 06:40 | disposition left against medical advice (07) ==
LOC: ED 06:37
DX: M79.675 Pain in left toe(s) (principal); Z53.21 Procedure and treatment not carried out due to patient leaving prior to being seen by health care provider

== ENCOUNTER 2020-11-26 01:22 | Emergency (ER) | payer MEDICAID ==
[~2020-11-26] VITALS: Ht 167.6 cm; Wt 59.7 kg
[~2020-11-26 01:22] MED LIST changes: -OXYC-302 PO; +OXYC1TAB14 PO
[2020-11-26] MEDS ORDERED: MAALOX/HYOSCYAMINE/LIDOCAINE 45 ML BTL ONE (01:52)
[2020-11-26 01:57] LABS: BASOPHILS % (AUTO) 1 % (0-1); EOSINOPHILS % (AUTO) 1 % (1-7); LYMPHOCYTES % (AUTO) 22 % (22-44); MEAN CORPUSCULAR HGB CONC 35.6 g/dL (33.2-36.2); MEAN PLATELET VOLUME 6.7 fL (7.4-10.4); MONOCYTES % (AUTO) 7 % (2-9); NEUTROPHILS % (AUTO) 70 % (42-75); PLATELET COUNT 376 x10^3/uL (130-400); RED BLOOD COUNT 5.49 x10^6/uL (4.38-5.82); RED CELL DISTRIBUTION WIDTH 13.6 % (9.4-14.8)
--- NOTE | 2020-11-26 01:59 | NUR ---
PT IN BATHROOM URINE SAMPLE REQUESTED.
[2020-11-26] MEDS ORDERED: MAALOX/HYOSCYAMINE/LIDOCAINE 45 ML BTL PO ONE (02:00)
[2020-11-26 02:04] LABS: MD NO
[2020-11-26 02:05] LABS: ALANINE AMINOTRANSFERASE 27 U/L (12-78); ALBUMIN 4.4 g/dL (3.4-5.0); ANION GAP 9 mmol/L (5-15); CALCIUM 8.6 mg/dL (8.5-10.1); CHLORIDE 107 mmol/L (98-107)
[2020-11-26 02:08] LABS: ALKALINE PHOSPHATASE 97 U/L (45-117); BILIRUBIN,TOTAL 2.8 mg/dL (0.2-1.0); TOTAL PROTEIN 7.8 g/dL (6.4-8.2)
[2020-11-26 02:31] LABS: MICROSCOPIC INDICATED
[2020-11-26 03:31] VITALS: BP 138/93
== END 2020-11-26 03:38 | disposition home or self-care (01) ==
LOC: ED 02:10
DX: K29.00 Acute gastritis without bleeding (principal); R10.84 Generalized abdominal pain; Z90.49 Acquired absence of other specified parts of digestive tract
CPT/HCPCS: 36415; 80053; 81001; 83690; 85025; 99283

== ENCOUNTER 2020-12-04 15:24 | Emergency (ER) | payer MEDICAID ==
[~2020-12-04] VITALS: Ht 165.1 cm; Wt 59.6 kg
--- NOTE | 2020-12-04 16:24 | NUR ---
PT IN BATHROOM FOR MINIMUM 10 MINUTES, PT HEARD FLUSHING TOILET 5 TIMES. UPON PT EXITING RESTROOM, SMELLS STRONGLY OF SMOKE. PT EDUCATED NOT TO SMOKE IN HOSPITAL. PRIMARY RN UPDATED.
[2020-12-04 16:34] LABS: BASOPHILS % (AUTO) 1 % (0-1); EOSINOPHILS % (AUTO) 3 % (1-7); LYMPHOCYTES % (AUTO) 32 % (22-44); MEAN CORPUSCULAR HEMOGLOBIN 31.5 pg (27.5-34.5); MEAN CORPUSCULAR HGB CONC 35.3 g/dL (33.2-36.2); MEAN PLATELET VOLUME 6.9 fL (7.4-10.4); MONOCYTES % (AUTO) 7 % (2-9); NEUTROPHILS % (AUTO) 56 % (42-75); PLATELET COUNT 345 x10^3/uL (130-400); RED BLOOD COUNT 4.98 x10^6/uL (4.38-5.82); RED CELL DISTRIBUTION WIDTH 13.3 % (9.4-14.8)
[2020-12-04 16:35] LABS: MD NO
[2020-12-04 16:39] LABS: ALANINE AMINOTRANSFERASE 36 U/L (12-78); ANION GAP 6 mmol/L (5-15); CALCIUM 8.4 mg/dL (8.5-10.1); CHLORIDE 105 mmol/L (98-107); CREATININE 0.83 mg/dL (0.7-1.3)
[2020-12-04 16:41] LABS: ALKALINE PHOSPHATASE 80 U/L (45-117); BILIRUBIN,TOTAL 2.6 mg/dL (0.2-1.0); TOTAL PROTEIN 7.2 g/dL (6.4-8.2)
[2020-12-04 17:28] VITALS: BP 120/65
--- NOTE | 2020-12-04 17:55 | NUR ---
PT REC'VD DISCHARGE INSTRUCTIONS AND EDUCATION. PT HAD NO FURTHER QUESTIONS. PT GIVEN AREA RESOURCES FOR SUBSTANCE ABUSE AND COUNSELING.
== END 2020-12-04 17:58 | disposition home or self-care (01) ==
LOC: ED 17:40
DX: K29.20 Alcoholic gastritis without bleeding (principal); F10.10 Alcohol abuse, uncomplicated; R10.13 Epigastric pain; R11.2 Nausea with vomiting, unspecified; R19.7 Diarrhea, unspecified; F17.210 Nicotine dependence, cigarettes, uncomplicated; Z90.89 Acquired absence of other organs; Y90.0 Blood alcohol level of less than 20 mg/100 ml
CPT/HCPCS: 36415; 74021; 80053; 83690; 85025; 99284

== ENCOUNTER 2021-01-11 01:35 | Emergency (ER) | payer MEDICAID ==
[~2021-01-11] VITALS: Ht 170.2 cm; Wt 57.6 kg
--- NOTE | 2021-01-11 01:55 | NUR ---
pt reports coming into ed this evening due to abdominal pain, pt states his abodminal region is hurting for a couple days, denies n/v/d to this rn. reports it is entire abdominal region. pt resting on gurney, provided warm blankets for comfort, placed on spo2/bp monitoring at this time. benjie.
[2021-01-11] MEDS ORDERED: MAALOX/HYOSCYAMINE/LIDOCAINE 45 ML BTL ONE ×2 (02:29→02:30)
[2021-01-11] MEDS ORDERED: MAALOX/HYOSCYAMINE/LIDOCAINE 45 ML BTL PO ONE (02:30)
[2021-01-11 02:45] LABS: BASOPHILS % (AUTO) 1 % (0-1); EOSINOPHILS % (AUTO) 4 % (1-7); LYMPHOCYTES % (AUTO) 30 % (22-44); MEAN CORPUSCULAR HEMOGLOBIN 31.3 pg (27.5-34.5); MEAN CORPUSCULAR HGB CONC 35.2 g/dL (33.2-36.2); MEAN PLATELET VOLUME 6.6 fL (7.4-10.4); MONOCYTES % (AUTO) 7 % (2-9); NEUTROPHILS % (AUTO) 58 % (42-75); PLATELET COUNT 396 x10^3/uL (130-400); RED BLOOD COUNT 4.96 x10^6/uL (4.38-5.82); RED CELL DISTRIBUTION WIDTH 13.4 % (9.4-14.8)
[2021-01-11 02:46] LABS: MD NO
[2021-01-11 02:50] LABS: ALANINE AMINOTRANSFERASE 49 U/L (12-78); ALBUMIN 3.8 g/dL (3.4-5.0); ANION GAP 7 mmol/L (5-15); CALCIUM 8.5 mg/dL (8.5-10.1); CHLORIDE 110 mmol/L (98-107); CREATININE 0.87 mg/dL (0.7-1.3)
[2021-01-11 02:52] LABS: ALKALINE PHOSPHATASE 77 U/L (45-117); BILIRUBIN,TOTAL 1.8 mg/dL (0.2-1.0); TOTAL PROTEIN 7.1 g/dL (6.4-8.2)
--- NOTE | 2021-01-11 03:00 | NUR ---
PT RESTING ON GURNEY, NAD, EYES CLOSED, EVEN AND UNLABORED RESPIRATIONS NOTED, VSS, WCTM. WAITING FOR LAB RESULTS.
[2021-01-11 04:13] VITALS: BP 114/73
--- NOTE | 2021-01-11 04:25 | NUR ---
Patient given discharge instructions and they have confirmed that they understand the instructions. Patient ambulatory with steady gait. NAD, DENIES ADDITIONAL QUESTIONS OR NEEDS, NO PERSONAL BELONGINGS LEFT IN ROOM AFTER DC.
== END 2021-01-11 04:26 | disposition home or self-care (01) ==
LOC: ED 04:10
DX: K85.00 Idiopathic acute pancreatitis without necrosis or infection (principal); R10.13 Epigastric pain; Z72.9 Problem related to lifestyle, unspecified; R11.2 Nausea with vomiting, unspecified
CPT/HCPCS: 36415; 80053; 80320; 83690; 85025; 99283; G0480

== ENCOUNTER 2021-01-22 19:15 | Emergency (ER) | payer MEDICAID ==
[~2021-01-22] VITALS: Ht 167.6 cm; Wt 55.0 kg
--- NOTE | 2021-01-22 19:20 | NUR ---
NIL X 1
[2021-01-22 19:29] VITALS: BP 129/75
[2021-01-22] MEDS ORDERED: NEOSPORIN OINT. PKT 1 PACKET ONE (20:13)
== END 2021-01-22 20:27 | disposition home or self-care (01) ==
LOC: ED 20:03
DX: S91.312A Laceration without foreign body, left foot, initial encounter (principal); Z59.0 Homelessness; F17.210 Nicotine dependence, cigarettes, uncomplicated; Z90.89 Acquired absence of other organs; Z90.49 Acquired absence of other specified parts of digestive tract; X58.XXXA Exposure to other specified factors, initial encounter; Y93.89 Activity, other specified; Y92.410 Unspecified street and highway as the place of occurrence of the external cause; Y99.8 Other external cause status
CPT/HCPCS: 99282; 99406

== ENCOUNTER 2021-03-05 05:51 | Emergency (ER) | payer MEDICAID ==
[~2021-03-05] VITALS: Ht 170.2 cm; Wt 56.8 kg
[2021-03-05 05:54] VITALS: BP 118/79
== END 2021-03-05 06:17 | disposition left against medical advice (07) ==
LOC: ED 06:10
DX: R10.9 Unspecified abdominal pain (principal); Z53.21 Procedure and treatment not carried out due to patient leaving prior to being seen by health care provider

== ENCOUNTER 2021-03-18 16:58 | Emergency (ER) | payer MEDICAID ==
--- NOTE | 2021-03-18 17:03 | NUR ---
PATIENT NIL X1.
--- NOTE | 2021-03-18 17:13 | NUR ---
NIL X2.
--- NOTE | 2021-03-18 17:36 | NUR ---
PATIENT NIL X3.
--- NOTE | 2021-03-18 17:50 | NUR ---
PATIENT ELOPED FROM ED.
== END 2021-03-18 17:51 | disposition left against medical advice (07) ==
LOC: ED 17:28
DX: J11.1 Influenza due to unidentified influenza virus with other respiratory manifestations (principal); Z53.21 Procedure and treatment not carried out due to patient leaving prior to being seen by health care provider